=== PATIENT | female | born 2000 | race Caucasian/White ===

== ENCOUNTER 2022-10-29 15:26 | Emergency (ER) | payer OTHER ==
[~2022-10-29] VITALS: Ht 170.2 cm; Wt 95.4 kg
[2022-10-29 16:26] VITALS: BP 125/84
[2022-10-29 16:30] VITALS: BP 120/72
[2022-10-29 16:46] VITALS: BP 111/68
[2022-10-29 17:01] VITALS: BP 114/75
[2022-10-29] MEDS ORDERED: NAPROXEN500 MG PO (17:10)
[2022-10-29 17:16] VITALS: BP 108/71
[2022-10-29 17:20] VITALS: BP 108/71
== END 2022-10-29 17:24 | disposition home or self-care (01) ==
LOC: ED 15:26
DX: S93.402A Sprain of unspecified ligament of left ankle, initial encounter (principal); X50.0XXA Overexertion from strenuous movement or load, initial encounter; Y93.89 Activity, other specified